=== PATIENT | male | born 1950 | race Caucasian/White ===

== ENCOUNTER → 2019-07-27 | Outpatient (CLI) | payer MEDICARE, OTHER ==
--- NOTE | 2019-07-27 14:16 | Diagnostic Imaging Report ---
PROCEDURE: MRI left joint lower extremity without contrast. TECHNIQUE: Multiplanar, multisequence non contrast-enhanced MRI of the left lower extremity was accomplished. INDICATION: Left knee pain. COMPARISON: None. FINDINGS: No acute fracture is seen in the left knee. Alignment is normal. There is moderate subchondral bone marrow edema in the medial compartment from degenerative change. There is a large left knee joint effusion and a large multiloculated Araujo's cyst measuring 3.7 x 2.7 cm on axial imaging. Marginal osteophytes are seen in all three compartments. The articular cartilage in the patellofemoral compartment demonstrates heterogeneity with no large full-thickness defects. The articular cartilage in the weightbearing medial compartment is completely gone. The cartilage in the lateral compartment demonstrates moderate thinning with no large full-thickness defects. There is extensive complex tearing and maceration of the medial meniscus. The lateral meniscus appears intact. The anterior cruciate ligament demonstrates thickening and increased signal consistent with mucoid degeneration. The posterior cruciate ligament is intact. The medial collateral ligament is bowed, but appears intact. The lateral collateral ligamentous complex is intact. The extensor mechanism is intact. The medial and lateral retinacula are intact. IMPRESSION: 1. Tricompartmental degenerative changes and cartilage loss in the left knee, which is severe in the medial compartment. 2. Extensive complex tearing and maceration of the medial meniscus. 3. Large left knee joint effusion with a large Araujo's cyst. Dictated by: Dictated on workstation # [id number]
== END ==
LOC: RAD 13:07
PROVIDERS: ATTEND Nurse Practitioner Family
DX: M17.0 Bilateral primary osteoarthritis of knee (principal); M25.462 Effusion, left knee; M71.22 Synovial cyst of popliteal space [Baker], left knee; M23.8X2 Other internal derangements of left knee
CPT/HCPCS: 73721

== ENCOUNTER 2019-09-25 11:01 | Outpatient (RCR) | payer MEDICARE, OTHER | END 2019-11-08 13:50 | disposition home or self-care (01) | PROVIDERS: ATTEND Orthopaedic Surgery | DX: Z47.1 Aftercare following joint replacement surgery (principal); Z96.652 Presence of left artificial knee joint ==

== ENCOUNTER 2022-01-08 08:39 | Outpatient (CLI) | payer MEDICARE, OTHER ==
[~2022-01-08] VITALS: Ht 175.3 cm; Wt 83.2 kg
[2022-01-08] MEDS ORDERED: MULT-1056 PO (10:32)
== END 2022-01-08 10:33 | disposition home or self-care (01) ==
LOC: PREOP 08:39
PROVIDERS: ATTEND Internal Medicine
DX: Z01.818 Encounter for other preprocedural examination (principal)

== ENCOUNTER 2022-01-16 08:54 | Day surgery (SDC) | payer MEDICARE, OTHER ==
--- NOTE | 2022-01-09 07:55 | HISTORY AND PHYSICAL ---
DATE OF SERVICE: COLONOSCOPY HISTORY AND PHYSICAL DATE OF ADMISSION: 01/16/2022 HISTORY OF PRESENT ILLNESS: The patient is a 71-year-old white male being referred by Dr. Gilbert for his first screening colonoscopy. He is not aware of any family history for GI tract malignancy including colon cancer. He did report some occasional small volume bright red blood per rectum that he has attributed to hemorrhoids that he actually sometimes has to push back in, but otherwise without symptoms. He denies constipation or diarrhea. Has had no bowel habit change. No change in weight. He denies abdominal pain. PAST MEDICAL HISTORY: Otherwise, noncontributory. He is taking no prescription medications, he is on several vitamins [id number]. No other supplements reported. PAST SURGICAL HISTORY: He had left total knee replacement in 2019 for osteoarthritis. SOCIAL HISTORY: He is a retired director of [employer] in [facility] with no past drinking history and no past smoking history. REVIEW OF SYSTEMS: CONSTITUTIONAL: Denies night sweats, chills or fever. PULMONARY: Denies cough, wheezing or shortness of breath. CARDIOVASCULAR: Denies orthopnea, PND, pedal edema, chest pain or syncope. GASTROINTESTINAL: As noted in the HPI. PHYSICAL EXAMINATION: GENERAL: Reveals a white male, appearing younger than his stated age, appearing to be in no acute distress. VITAL SIGNS: Blood pressure 120/74 and weight is 183 pounds. HEENT: Unremarkable. Sclerae nonicteric. CHEST: Clear. CARDIOVASCULAR: Reveals a regular rate and rhythm without murmur, S3 or S4. ABDOMEN: Soft, supple without mass, organomegaly or tenderness. EXTREMITIES: Reveal no cyanosis, clubbing or edema. ASSESSMENT AND PLAN: The patient is being set up for his first screening colonoscopy. Prep instructions were given and questions were answered. I thank you for the referral of this pleasant gentleman. CC: Dr. Jean Paul Gilbert " requested, unable to deliver. Job ID: [id number] DocumentID: [id number] Dictated Date: 01/07/2022 17:02:43 Roving Department Supervisor Date: 01/07/2022 17:20:49 Dictated By: MYRON SINGH MD [facility]
[~2022-01-16] VITALS: Ht 175 cm; Wt 83.2 kg
[~2022-01-16 08:54] MED LIST: MULT-1056 PO
[2022-01-16] MEDS ORDERED: LACTATED RINGERS 1,000 ML IV STA (08:58)
[2022-01-16 09:45] VITALS: BP 134/75
--- NOTE | 2022-01-16 09:55 | Pre-Op Note & Conscious Sedat ---
Pre-Operative Progress Note H&P Reviewed The H&P was reviewed, patient examined and no changes noted. Date H&P Reviewed: Jan 16, 2022 Time H&P Reviewed: 09:55 Conscious Sedation Pre-Proced ASA Score 2 For ASA 3 and 4: Consider anesthesia and medical clearance. Also, for patients with a history of failed moderate sedation consider anesthesia. Airway Lungs Heart ASA score ASA 1: a normal healthy patient ASA 2: a patient with a mild systemic disease (mid diabetes, controlled hypertension, obesity ASA 3: a patient with a severe systemic disease that limits activity (angina, COPD, prior Myocardial infarction) ASA 4: a patient with an incapacitating disease that is a constant threat to life (CHF, renal failure) ASA 5: a moribund patient not expected to survive 24 hrs. (ruptured aneurysm) ASA 6: a declared brain- patient whose organs are being harvested. For emergent operations, add the letter E after the classification Mallampati Classification Grade 1 Sedation Plan Analgesia, Amnesia, Plan communicated to team members, Discussed options with patient/fam, Discussed risks with patient/fam The patient is an appropriate candidate to undergo the planned procedure, sedation, and anesthesia. The patient immediately re-assessed prior to indication. MYRON SINGH MD Jan 16, 2022 09:55
[2022-01-16] MEDS ORDERED: PROPOFOL INJECTION 50 ML IV ONE (10:26)
[2022-01-16] MEDS ORDERED: proPOfol 200 MG/20 ML (DIPRIVAN) VIAL IV ONE (11:18)
--- NOTE | 2022-01-16 11:26 | Anesthesia-General Post-Op ---
MAC Patient Condition Mental Status/LOC: Same as Preop Cardiovascular: Satisfactory Nausea/Vomiting: Absent Respiratory: Satisfactory Pain: Controlled Complications: Absent Post Op Complications Complications None Follow Up Care/Instructions Patient Instructions None needed. Anesthesiology Discharge Order Discharge Order Patient is doing well, no complaints, stable vital signs, no apparent adverse anesthesia problems. No complications reported per nursing. SARAH WORTHINGTON CRNA Jan 16, 2022 11:26
[2022-01-16 11:30] VITALS: BP 147/87
[2022-01-16 11:35] VITALS: BP 162/85
[2022-01-16 11:40] VITALS: BP 162/85
[2022-01-16 11:59] VITALS: BP 162/85
--- NOTE | 2022-01-17 00:22 | OPERATIVE REPORT ---
DATE OF SERVICE: COLONOSCOPY SUMMARY INDICATION FOR THE PROCEDURE: Screening. DESCRIPTION OF PROCEDURE: The patient was placed in the left lateral decubitus position. Prior to undergoing colonoscopy, a digital rectal evaluation was performed. Anal sphincter tone was normal and the perianal reflexes intact. Prostate is unremarkable to digital inspection and no abnormalities were noted on digital inspection of anal canal or distal rectal vault. The colonoscope was then inserted into the rectum and under direct visualization advanced to the cecum. The cecum was identified by identification of ileocecal valve and cecal strap. Quality of prep was fair. Careful inspection was made as the colonoscope was withdrawn. FINDINGS: There was no evidence for internal or external hemorrhoids and the rectum was unremarkable. Present in the distal sigmoid colon were 2 adjacent sessile polyps, the larger is 8 mm in size with adenomatous features and was photographed and biopsied and ablated. There was more than the typical amount of post-polypectomy bleeding and still evidence for oozing on visualization. So, an endoclip was deployed with cessation of bleeding. Another sessile polyp was biopsied and ablated with no blood loss. Moderate diverticular disease confined to the sigmoid colon was present. The descending colon was unremarkable as was the splenic flexure. A sessile polyp was noted in the distal transverse colon, 3 mm in size. It was biopsied and ablated and submitted for histopathology. The remainder of the transverse colon and hepatic flexure were unremarkable. Present in the proximal ascending colon was a 2 mm sessile polyp was biopsied, ablated with hot forceps with no subsequent blood loss. Cecum was unremarkable. ASSESSMENT: Four polyps were removed, the largest 8 mm in the distal sigmoid colon did require endoclip deployment for hemorrhage control as noted above. The patient was advised to avoid aspirin and nonsteroidal medications for the next week. We will await histopathology report, but will likely be advocating a repeat surveillance colonoscopy in one year. I thank you for the referral of this pleasant gentleman. Job ID: [id number] DocumentID: [id number] Dictated Date: 01/16/2022 11:28:15 Project Development Manager Date: 01/16/2022 21:57:31 Dictated By: MYRON SINGH MD
== END 2022-01-16 12:30 | disposition home or self-care (01) ==
LOC: ENDO 08:54
PROVIDERS: ATTEND Internal Medicine
DX: Z12.11 Encounter for screening for malignant neoplasm of colon (principal); D12.2 Benign neoplasm of ascending colon; D12.3 Benign neoplasm of transverse colon; D12.5 Benign neoplasm of sigmoid colon; K57.30 Diverticulosis of large intestine without perforation or abscess without bleeding
CPT/HCPCS: 88305

== ENCOUNTER 2022-07-01 08:00 | Outpatient (RCR) | payer MEDICARE, OTHER | END 2022-07-04 | disposition home or self-care (01) | PROVIDERS: ATTEND Nurse Practitioner Family | DX: Z47.1 Aftercare following joint replacement surgery (principal); Z96.651 Presence of right artificial knee joint ==

== ENCOUNTER 2022-07-22 09:11 | Outpatient (RCR) | payer MEDICARE, OTHER | END 2022-08-04 | disposition home or self-care (01) | PROVIDERS: ATTEND Nurse Practitioner Family | DX: Z47.1 Aftercare following joint replacement surgery (principal); Z96.651 Presence of right artificial knee joint ==

== ENCOUNTER 2023-01-29 08:00 | Day surgery (SDC) | payer MEDICARE, OTHER ==
[~2023-01-29] VITALS: Ht 175 cm; Wt 80.3 kg
[~2023-01-29 08:00] MED LIST changes: +POLY119P2 PO; +[UNRECOGNIZED DRUG - CODE] MC; +[UNRECOGNIZED DRUG - CODE] PO
[2023-01-29] MEDS ORDERED: LACTATED RINGERS 1,000 ML IV STA (08:03)
--- NOTE | 2023-01-29 08:07 | Pre-Op Note & Conscious Sedat ---
Pre-Operative Progress Note Date H&P Reviewed: Jan 29, 2023 Time H&P Reviewed: 08:07 History & Physical: H&P Reviewed, Patient Examed, No changes noted Pre-Op Diagnosis: polyp surviellance Moderate Sedation PreProcedure ASA Score 2 Airway Lungs Heart ASA score ASA 1: a normal healthy patient ASA 2: a patient with a mild systemic disease (mid diabetes, controlled hypertension, obesity ASA 3: a patient with a severe systemic disease that limits activity (angina, COPD, prior Myocardial infarction) ASA 4: a patient with an incapacitating disease that is a constant threat to life (CHF, renal failure) ASA 5: a moribund patient not expected to survive 24 hrs. (ruptured aneurysm) ASA 6: a declared brain- patient whose organs are being harvested. For emergent operations, add the letter E after the classification Mallampati Classification Grade 2 Sedation Plan Analgesia, Amnesia, Plan communicated to team members, Discussed options with patient/fam, Discussed risks with patient/fam The patient is an appropriate candidate to undergo the planned procedure, sedation, and anesthesia. The patient immediately re-assessed prior to indication. MYRON SINGH MD Jan 29, 2023 08:07
[2023-01-29 08:15] VITALS: BP 122/67
[2023-01-29] MEDS ORDERED: PROPOFOL INJECTION 50 ML IV ONE ×2 (08:41→09:07)
[2023-01-29 09:25] VITALS: BP 108/58
[2023-01-29 09:30] VITALS: BP 116/67
[2023-01-29 09:35] VITALS: BP 122/71
[2023-01-29 09:58] VITALS: BP 122/71
--- NOTE | 2023-01-29 12:25 | Anesthesia-General Post-Op ---
MAC Patient Condition Mental Status/LOC: Same as Preop Cardiovascular: Satisfactory Nausea/Vomiting: Absent Respiratory: Satisfactory Pain: Controlled Complications: Absent Post Op Complications Complications None Follow Up Care/Instructions Patient Instructions None needed. Anesthesiology Discharge Order Discharge Order Patient is doing well, no complaints, stable vital signs, no apparent adverse anesthesia problems. No complications reported per nursing. TAWANDA BECKFORD CRNA Jan 29, 2023 12:25
--- NOTE | 2023-02-09 15:27 | Progress Note-Post Operative ---
Post-Procedure Note Physician (s)/Communications Writer (s) Physician MYRON SINGH MD Pre-Procedure Diagnosis Pre-Procedure Diagnosis: polyp surviellance Post-Procedure Diagnosis Post-operative diagnosis: Prior to undergoing colonoscopy digital rectal evaluation was performed. Anal suture tone was normal and the perianal reflexes intact. Prostate is mildly enlarged and nodular on digital inspection. No abnormalities noted on digital inspection anal canal distal rectal vault. The colonoscope was then inserted into the rectum and under direct visualization advanced to the cecum. The cecum was identified by noting the ileocecal valve cecal strap and appendiceal orifice. Photographic documentation was obtained. Careful inspection was made as the colonoscope was withdrawn. Quality the prep was good. Findings: There were no evidence for internal or external hemorrhoids and the rectum was unremarkable. The sigmoid colon was unremarkable. Present in the descending colon was a 4 mm sessile polyp it was biopsied and ablated and submitted for us to pathology. There was no subsequent blood loss. The splenic flexure transverse colon hepatic flexure ascending colon and cecum were unremarkable. Assessment: 1. One 4 mm sessile polyp histopathology compatible with benign tubular adenoma was removed from the descending colon with an otherwise normal colonoscopy to the cecum. Considering patient age would not advocate future surveillance colonoscopy. 2. Digital evaluation the prostate was compatible with mild BPH. CC: MD FRANCISCO Damon,MYRON Shaikh MD Feb 09, 2023 15:27
--- NOTE | 2023-02-10 14:18 | HISTORY AND PHYSICAL ---
COLONOSCOPY HISTORY AND PHYSICAL HISTORY OF PRESENT ILLNESS: The patient is a 72-year-old white male being scheduled for repeat colonoscopy due to history of positive Cologuard a year ago, at which time he underwent colonoscopy and was noted to have three adenomatous polyps, largest about 8 mm in size, locations were the proximal ascending colon, distal transverse colon and distal sigmoid colon. All were tubular adenomas without dysplasia. He reports there have been no changes in his health history over the past year. He is not taking any prescription medications. PAST SURGICAL HISTORY: Significant for total knee replacement in 2019. FAMILY HISTORY: He is not aware of any family history for colon cancer. PHYSICAL EXAMINATION: GENERAL: Reveals a white male, pleasant, in no acute distress. VITAL SIGNS: Blood pressure 122/76. HEENT: Unremarkable. Sclerae nonicteric. CHEST: Clear. CARDIOVASCULAR: Reveals a regular rate and rhythm without murmur, S3, or S4. ABDOMEN: Soft, supple without mass, organomegaly, or tenderness. EXTREMITIES: No cyanosis, clubbing or edema. ASSESSMENT: The patient is being set up for surveillance colonoscopy due to past history of positive Cologuard with adenomatous colonic polyps. Discussed that if there is no evidence for neoplasia would likely increasing screening interval to 3 years. Prep instructions were given and questions were answered. Job ID: [id number] DocumentID: [id number] Dictated Date: 01/21/2023 16:42:49 Stock Associate Date: 01/21/2023 16:55:00 Dictated By: MYRON SINGH MD <Dictated by MYRON SINGH MD> <Electronically signed by MYRON SINGH MD> 01/26/23 1550 [facility]
== END 2023-01-29 10:48 | disposition home or self-care (01) ==
LOC: ENDO 08:00
PROVIDERS: ATTEND Internal Medicine
DX: Z09 Encounter for follow-up examination after completed treatment for conditions other than malignant neoplasm (principal); D12.4 Benign neoplasm of descending colon; N40.0 Benign prostatic hyperplasia without lower urinary tract symptoms
CPT/HCPCS: 88305